=== PATIENT | female | born 1950 | race Caucasian/White ===

== ENCOUNTER 2023-10-11 17:42 | Inpatient (IN) | payer MEDICARE, OTHER, SELFPAY ==
[2023-10-11] VITALS (9 sets, daily range): BP systolic 147–191; BP diastolic 61–75; BMI 23.5; BMI 22.3
[2023-10-11 14:07] LABS: % Basophils 0.5 % (0-2); % Eosinophils 1.1 % (0-6); % Immature Granulocytes 0.4 % (0-0.5); % Lymphocytes 23.5 % (20.5-51.1); % Monocytes 5.5 % (1.7-9.3); Absolute Basophils 0.1 10^3/uL (0-0.2); Absolute Eosinophils 0.1 10^3/uL (0-0.7); Absolute Lymphocytes 2.2 10^3/uL (1.2-3.4); Absolute Monocytes 0.5 10^3/uL (0.1-0.6); Absolute Neutrophils 6.5 10^3/uL (1.4-6.5); Hematocrit 34.5 % (37.0-47.0); Hemoglobin 12.1 g/dL (12.0-16.0); Mean Corp Hgb Conc. 35.1 g/dL (33.0-37.0); Mean Corpuscular Hgb 30.3 pg (27.0-31.0); Mean Corpuscular Volume 86.3 fL (81.0-99.0); Mean Platelet Volume 8.6 fL (7.4-10.4); Nucleated Red Blood Cells % 0 %; Platelet Count 330 10^3/uL (130-400); Red Cell Dist. Width 11.9 % (11.5-14.5); White Blood Cell Count 9.5 10^3/uL (4.8-10.8)
[2023-10-11 14:27] LABS: ALT (SGPT) 11 U/L (0-35); AST (SGOT) 27 U/L (14-36); Albumin 3.9 g/dl (3.5-5.0); Alkaline Phosphatase 87 U/L (38-126); Blood Urea Nitrogen 13 mg/dl (7-17); Calcium 8.8 mg/dl (8.4-10.2); Carbon Dioxide 21 mmol/L (22-30); Chloride 89 mmol/L (98-107); Glucose 103 mg/dl (70-99); Potassium 4.8 mmol/L (3.5-5.1); Sodium 119 mmol/L (135-145); Total Bilirubin 0.6 mg/dl (0.2-1.3); Total Protein 6.2 g/dl (6.3-8.2); eGFR 59.49
--- NOTE | 2023-10-11 14:36 | ED.GENMED ---
History of Present Illness
General
Chief Complaint: Abdominal Symptoms
Time Seen by Provider: 10/11/23 14:34
Travel History
Have you had any contact with someone who has COVID-19?: No
Do you have any symptoms of coronavirus? Fever > 100 degrees, chills, cough, shortness of breath, sore throat, loss of taste or smell, muscle aches, or headache?: No
History of Present Illness
History of Present Illness:
73 yo female presents to the Emergency Department for evaluation of general malaise, 'dizziness' and sinus pressure. Reports she was recently on a cruise, while abroad she developed URI symptoms. Upon returning 6d ago, was seen in urgent care and
prescribed amoxicillin, however states after one dose she 'got so sick to my stomach I stopped taking it'. She has tried supportive OTC measures for her URI symptoms since then, including increased fluid intake. Feels off balance when ambulating for
past 3-4 days. No vision changes, headaches, neck pain, vomiting. Does note several episodes of NB diarrhea today.
Past History
Past History
ED Past Medical History: CAD, Hypercholesterolemia, Hypothyroidism and Other (Rheumatoid arthritis)
ED Past Surgical History: None
Social History
Tobacco: Former smoker
Alcohol: None
Personal:
Living: with family
Employment: Employed
Family History
Family History: Other (Noncontributory)
Review of Systems
Review of Systems
Allergies reviewed?: Yes
All Other Systems: ROS reviewed and negative except as documented in HPI and ROS
Phy Exam
Physical Exam
Physical Exam:
GEN: Well appearing, NAD, WDWN
HEENT: Oral mucosa moist, no scleral icterus, no nasal congestion
Cardiac: Regular rate and rhythm, no murmurs
Lung: No respiratory distress, no tachypnea, lungs CTAB
MSK: No gross deformity or injuries
Skin: Good color, no pallor or jaundice, no rashes
Neuro: AO x3; CN II-XII grossly intact. BUE strength 5/5 in all mclaughlin, sensation intact and symmetric. BLE strength 5/5 in all mclaughlin, sensation intact and symmetric
Psych: Calm, cooperative
Course
Orders/Labs/Results
Orders:
Orders
10/11/23 13:59
CMP [Comprehensive Metabolic Panel] Urgent
Complete Blood Count/With Diff Urgent
Serum Osmolality Urgent
Comment: ADD
TSH Urgent
Comment: ADD
10/11/23 14:35
Add On- LAB Urgent
Tests Added?: serum osmolality, TSH
10/11/23 15:35
Osmolality, Random Urine Urgent
Date Specimen was Collected: 10/11/23
Time Specimen was Collected: 15:32
Urinalysis Reflex To Culture Urgent
Date Specimen was Collected: 10/11/23
Time Specimen was Collected: 15:32
Urine Sodium Urgent
Date Specimen was Collected: 10/11/23
Time Specimen was Collected: 15:32
10/11/23 17:05
3% Sodium Chloride 250 ml [Sodium Chloride 3%] 250 ml IV ONCE
10/11/23 17:22
Admit/Transfer Patient As Directed
Co-Sign Provider:
Level of Care: Inpatient admission
Assign to:: Telemetry
Physician / Group: janice
Diagnosis: hyponatremia
Reason for Telemetry: Arrhythmia
Date to Stop Telemetry: 10/14/23
Time to Stop Telemetry: 11:00
Reason for Hospitalization: hyponatremia
Expected length of stay greater than two midnights?: Yes
ELOS- Estimated Length of Stay in days: 2
I certify the patient meets the requirements for IP care: Yes
10/11/23 17:24
Code Status As Directed
Resuscitation Status: Full Code
10/11/23 21:00
Basic Metabolic Panel Routine
10/14/23 11:00
DC Protocol for Telemetry ONCE
Abnormal Lab Results
10/11/23 10/11/23
13:59 15:35
RBC 4.00 L 10^6/uL
(4.20-5.40)
Hct 34.5 L %
(37.0-47.0)
Sodium 119 L* mmol/L
(135-145)
Chloride 89 L mmol/L
(98-107)
Carbon Dioxide 21 L mmol/L
(22-30)
Glucose 103 H mg/dl
(70-99)
Serum Osmolality 250 L mOsm/kg
(275-300)
Total Protein 6.2 L g/dl
(6.3-8.2)
Urine Osmolality 125 L mOsm/kg
(300-900)
Urine Sodium 22 L mmol/L
(30-90)
10/11/23 13:59
10/11/23 13:59
Vital Signs
Initial and Last Documented VS:
Initial Vital Signs
Temp Pulse Resp BP Pulse Ox
98.3 F 79 18 191/75 98
10/11/23 13:49 10/11/23 13:49 10/11/23 13:49 10/11/23 13:49 10/11/23 13:49
Last Documented Vital Signs
Temp Pulse Resp BP Pulse Ox
98.3 F 76 20 170/68 95
10/11/23 13:49 10/11/23 19:30 10/11/23 19:30 10/11/23 19:00 10/11/23 19:30
MDM/Problems Addressed
MDM/Problems Addressed:
I suspect the cause of the patient's hyponatremia is primarily polydipsia in the setting of recent illness. Will be admitted to the hospitalist service for further management. Regards to her URI symptoms there is no indication that this is acute
bacterial rhinosinusitis thus antibiotics not indicated
*Critical Care Note
Total Time (30-74mins, 75-104mins- exclusive of procedures): Not Applicable
ED Attending Note
-
Portions of this chart may have been created with voice recognition software.� Occasional wrong word or��sound alike� substitutions may have occurred due to the inherent limitations of voice recognition software.
Discharge Plan
Departure
Patient Disposition: Admit
Date of Disposition: 10/11/23
Time of Disposition: 16:31
Admit to: Med/Surg
Presentation/result/management discussed w/ accepting MD/DO: Hospitalist
Discharge Problem:
Acute hyponatremia
Interventions
Interventions:
*Risk Screen - Suicide Last Done: 10/11/23 15:42
*General Assessment Last Done: 10/11/23 15:42
*Neglect/Abuse Screening Last Done: 10/11/23 15:42
ED- Fall Risk Assessment Last Done: 10/11/23 15:42
*ED COVID-19 Vaccine History Last Done: 10/11/23 13:51
DR-Sxpbyd-Mxgetbodcl Assessment Last Done: 10/11/23 15:42
[2023-10-11 15:45] LABS: Urine Albumin Negative (Neg - Trace); Urine Bilirubin Negative (Negative); Urine Character Clear (Clear); Urine Color Yellow; Urine Glucose Negative (Negative); Urine Ketone Negative (Negative); Urine Leukocyte Negative (Negative); Urine Nitrite Negative (Negative); Urine Occult Blood Negative (Negative); Urine Specific Gravity 1.005 (<1.030); Urine Urobilinogen Negative (Neg - 1+)
[2023-10-11 15:55] LABS: Osmolality Urine 125 mOsm/kg (300-900)
[2023-10-11 16:08] LABS: Urine Sodium 22 mmol/L (30-90)
--- NOTE | 2023-10-11 17:00 | W.CON.NEPH ---
Consultation
-
Date/Time Consultation Requested: October 11, 2023 4 PM
Date/Time Consultation Performed: October 11, 2023 5 PM
Requesting Provider: Dr. Hollis
Performing Provider: Dr. Kamara
Reason for Consultation: Hyponatremia
Medical History
-
Chief Complaint: Hyponatremia
History of Present Illness:
This is a 73-year-old female with hypertension controlled with monotherapy regimen, rheumatoid arthritis on methotrexate therapy, hypothyroidism controlled with Synthroid therapy. She had recently been on a cruise going from [facility] to [place].
This was a 17 day trip and she flew home from [place]. Last Tuesday or she began developing some head pressure and sinus issues. She took yusu-acq-hddhzwz therapies which did not seem to make her situation any better. Upon return she
gone to urgent care where she says a chest x-ray and blood work was unremarkable. She says that they diagnosed her with acute sinusitis and gave her amoxicillin. She took her first dose of this on Tuesday as instructed but this caused nausea and
so she had discontinued it on the recommendation of her on-call primary care physician's office. She had tried to drink more fluids by adding 32 ounces of water every day for the last few days. Yesterday she came out feeling dizzy and unstable.
She came to the emergency room for evaluation and was found to have a sodium level of 119.
Past Medical History
Hypertension, hypothyroidism, rheumatoid arthritis
Social History
Tobacco: Former Smoker
Alcohol: Occasional
Family History
No CKD
Allergies / Home Medications
Allergy/AdvReac Type Severity Reaction Status Date / Time
amoxicillin trihydrate Allergy Rash Verified 10/11/23 13:54
[From Augmentin]
erythromycin base Allergy Unknown Verified 10/11/23 13:54
levofloxacin [From Levaquin] Allergy Unknown Verified 10/11/23 13:54
losartan Allergy Unknown Verified 10/11/23 13:54
potassium clavulanate Allergy Rash Verified 10/11/23 13:54
[From Augmentin]
Sulfa (Sulfonamide Allergy Unknown Verified 10/11/23 13:54
Antibiotics)
�Medication �Instructions �Recorded �Confirmed �Type
levothyroxine 75 mcg tablet 75 mcg PO MOTUWETHFRSA 09/04/13 10/11/23 History
azelastine 137 mcg (0.1 %) nasal 1 spray intranasal BID 10/11/23 10/11/23 History
spray aerosol
cholecalciferol (vitamin D3) 25 25 mcg PO DAILY 10/11/23 10/11/23 History
mcg (1,000 unit) tablet (Vitamin
D3)
ergocalciferol (vitamin D2) 1,250 1,250 mcg PO QMONTH 10/11/23 10/11/23 History
mcg (50,000 unit) capsule
fluticasone propionate 50 1 spray intranasal DAILY 10/11/23 10/11/23 History
mcg/actuation nasal
spray,suspension
folic acid 1 mg tablet 1 mg PO DAILY 10/11/23 10/11/23 History
lisinopril 5 mg tablet 5 mg PO DAILY 10/11/23 10/11/23 History
methotrexate sodium 2.5 mg tablet 10 mg PO BLANCO 10/11/23 10/11/23 History
uyrboogjvbspp-wbznvffpykwtp-oysktrjhrmx 1 tab PO DAILYPRN PRN allergies 10/11/23 10/11/23 History
5 mg-325 mg-200 mg tablet
Review of Systems
-
No chest pain or shortness of breath. Diarrhea today. Decreased oral intake. No issues with urination. No chest pain or shortness of breath.
All other systems: Negative unless noted
Physical Exam
Vital Signs
Vital Signs
Temp Pulse Resp BP Pulse Ox
98.3 F 72 17 174/62 97
10/11/23 13:49 10/11/23 16:15 10/11/23 16:15 10/11/23 16:00 10/11/23 16:15
Lab Results
WBC 9.5 10^3/uL (4.8-10.8) 10/11/23 13:59
RBC 4.00 10^6/uL (4.20-5.40) L 10/11/23 13:59
Hgb 12.1 g/dL (12.0-16.0) 10/11/23 13:59
Hct 34.5 % (37.0-47.0) L 10/11/23 13:59
Plt Count 330 10^3/uL (130-400) 10/11/23 13:59
Sodium 119 mmol/L (135-145) L* 10/11/23 13:59
Potassium 4.8 mmol/L (3.5-5.1) 10/11/23 13:59
Chloride 89 mmol/L (98-107) L 10/11/23 13:59
Carbon Dioxide 21 mmol/L (22-30) L 10/11/23 13:59
BUN 13 mg/dl (7-17) 10/11/23 13:59
Creatinine 1.0 mg/dL (0.6-1.0) 10/11/23 13:59
eGFR 59.49 10/11/23 13:59
Glucose 103 mg/dl (70-99) H 10/11/23 13:59
Calcium 8.8 mg/dl (8.4-10.2) 10/11/23 13:59
Albumin 3.9 g/dl (3.5-5.0) 10/11/23 13:59
Physical Exam
Patient is awake alert oriented and in no distress. Mood and affect were pleasant, insight and judgment were good. Pupils are equal round and reactive to light, extraocular movements are intact, sclera were anicteric. Hearing was normal, ears and
nose are intact. Oropharynx was clear. Neck was supple with trachea midline and no thyromegaly. Heart was regular rate and rhythm without rubs. Lower extremities without edema. Lungs were clear to auscultation bilaterally and with normal
excursion. Abdomen was soft, nontender, with normal active bowel sounds, and no hepatosplenomegaly. Skin was without rash and with normal turgor.
Data Reviewed
-
Ultrasound: Report Reviewed by me (Renal ultrasound on 04/06/2023 shows right kidney 9.4 cm, left kidney 10 cm)
Labs: Labs Reviewed by me (Sodium 119, potassium 4.8, bicarb 21, chloride 89, BUN 13, creatinine 1, glucose 103, calcium 8.8, urinalysis pH of 7 suis of gravity 1.005, urine osmolality 125, urine sodium 25, hemoglobin 12.1)
Old Records: Reviewed (On December 14, 2022 sodium 137)
Assessment/Plan
-
Assessment:
Hyponatremia acute
Hypertension
Hypothyroid
Rheumatoid arthritis
Sinusitis
Plan:
Fluid restriction 40 ounces
Hypertonic saline tonight 30 cc/h
Serial basic metabolic panel
I suspect that she will correct easily as this appears to be more consistent with a low solute high solvent state
[2023-10-11 17:02] LABS: TSH 0.74 uIU/ml (0.47-4.68)
--- NOTE | 2023-10-11 17:25 | HPS.HSE ---
Addendum entered and electronically signed by Mehrdad Hollis MD 10/11/23 17:36:
Continue azalastine nasal spray instead of nasal saline spray.
Original Note:
Family Physician
-
Family Physician: Charlie Hamilton
Chief Complaint
-
dizziness
History of Present Illness
73-year-old female past medical history of carotid artery stenosis hypertension, hypercholesteremia, hypothyroidism, rheumatoid arthritis, chronic sinusitis presenting to the emergency room for sinus pressure, nasal discharge with clear to yellow
mucus and cough as well as disequilibrium, weakness, nausea. She was on a cruise when she developed worsening of her chronic sinus symptoms 6 days ago with sinus pressure, nasal discharge with clear yellow mucus and cough and right ear pressure.
The next day when she came back she went to urgent care and was prescribed amoxicillin and was told to started 3 days later if her symptoms did not improve.
Symptoms do not improve after 3 to 4 days and she took a single dose of amoxicillin and got severely nauseous and stopped taking further amoxicillin. She saw her primary care physician who performed chest x-ray which was unremarkable recommended
Flonase twice a day. Around that time she also developed weakness, off balance when ambulating. Over the past few days she has been drinking 72 ounces of fluids per day. Today she developed 3 episodes of diarrhea. She denies any abdominal pain.
She denies any fevers or chills.
Denies vision changes, headache, neck pain, vomiting. Denies any new medications apart from listed above. Denies any history of low sodium
Denies smoking or alcohol use.
Medical History
Past Medical History
Past Medical History: Reports Other ( carotid artery stenosis hypertension, hypercholesteremia, hypothyroidism, rheumatoid arthritis, chronic sinusitis )
Past Surgical History: Reports None
Social History
Tobacco: Non-smoker
Alcohol: None
Drug: None
Family History
Family History: Not pertinent
Allergies / Home Medications
Allergies reflects when Allergies were last updated in [facility].
Home Medications with original date entered in [facility]
Allergy/Medication List:
Allergies
Allergy/AdvReac Type Severity Reaction Status Date / Time
amoxicillin trihydrate Allergy Rash Verified 10/11/23 13:54
[From Augmentin]
erythromycin base Allergy Unknown Verified 10/11/23 13:54
levofloxacin [From Levaquin] Allergy Unknown Verified 10/11/23 13:54
losartan Allergy Unknown Verified 10/11/23 13:54
potassium clavulanate Allergy Rash Verified 10/11/23 13:54
[From Augmentin]
Sulfa (Sulfonamide Allergy Unknown Verified 10/11/23 13:54
Antibiotics)
Home Medications
levothyroxine 75 mcg tablet 75 mcg PO MOTUWETHFRSA 09/04/13
azelastine 137 mcg (0.1 %) nasal spray aerosol 1 spray intranasal BID 10/11/23
cholecalciferol (vitamin D3) 25 mcg (1,000 unit) tablet (Vitamin D3) 25 mcg PO DAILY 10/11/23
ergocalciferol (vitamin D2) 1,250 mcg (50,000 unit) capsule 1,250 mcg PO QMONTH 10/11/23
fluticasone propionate 50 mcg/actuation nasal spray,suspension 1 spray intranasal DAILY 10/11/23
folic acid 1 mg tablet 1 mg PO DAILY 10/11/23
lisinopril 5 mg tablet 5 mg PO DAILY 10/11/23
methotrexate sodium 2.5 mg tablet 10 mg PO BLANCO 10/11/23
geawnwkqcmnye-jlcwuqibwppcz-pcjkrpbxhxg 5 mg-325 mg-200 mg tablet 1 tab PO DAILYPRN PRN allergies 10/11/23
Review of Systems
-
History Source: Patient
A 12 point ROS was completed and negative except as noted: Yes
Constitutional: Reports No Symptoms
EENT: Reports No Symptoms
Respiratory: Reports No Symptoms
Cardiac: Reports No Symptoms
Abdomen/GI: Reports See HPI
: Reports No Symptoms
Musculoskeletal: Reports No Symptoms
Skin: Reports No Symptoms
Neurological: Reports No Symptoms
Endocrine: Reports No Symptoms
Hematologic/Lymphatic: Reports No Symptoms
Psych: Reports No Symptoms
Physical Exam
Vital Signs
Vital Signs
Temp Pulse Resp BP Pulse Ox
98.3 F 72 17 174/62 97
10/11/23 13:49 10/11/23 16:15 10/11/23 16:15 10/11/23 16:00 10/11/23 16:15
Physical Exam
General: Well Developed, Well Nourished and No Apparent Distress
HEENT: NormoCephalic, Moist mucous membranes and Atraumatic
Respiratory: Clear
Cardiac: S1/S2 and Regular Rhythm; No Murmur or Rub
GI: Soft, Non Tender, Non Distended and Normal Bowel Sounds; No Organomegaly
Rectal: Deferred by Provider
Musculoskeletal: No Clubbing, No Cyanosis and No Edema
Skin: No Rash
Neuro: Nonfocal/grossly intact
Laboratory Results
-
10/11/23 13:59
Laboratory Results
Total Bilirubin 0.6 mg/dl (0.2-1.3) 10/11/23 13:59
AST 27 U/L (14-36) 10/11/23 13:59
ALT 11 U/L (0-35) 10/11/23 13:59
Alkaline Phosphatase 87 U/L (38-126) 10/11/23 13:59
Data Reviewed
-
Lab Data: Labs Reviewed by me
Old Records: Reviewed
Impression/Plan
-
IMPRESSION:
PLAN:
# Symptomatic hyponatremia multifactorial secondary to polydipsia/GI losses from diarrhea
-Sodium 119
-Urine osmolality 125, urine sodium of 22
-Check TSH
-Nephrology consulted
-Fluid restriction 40 ounces
-Hypertonic saline 30 cc/h
-Check BMP after hypertonic saline
# Likely acute viral on chronic sinusitis
-Can continue to observe for few more days with symptomatic treatment before starting antibiotics
-Continue Flonase
-Nasal saline irrigation
# Likely antibiotic associated diarrhea
-Has been off antibiotics for few days
-Continue to monitor for further diarrhea
Carotid artery stenosis
Essential hypertension
-Continue lisinopril
Hypercholesterolemia
Hypothyroidism
-Continue levothyroxine
Rheumatoid arthritis
-Continue methotrexate
Full code
DVT prophylaxis�heparin
Regular diet
[2023-10-11] MEDS: SODIUM CHLORIDE 3% 250 IV (17:38)
[2023-10-11 18:24] LABS: Osmolality Serum 250 mOsm/kg (275-300)
[2023-10-11 20:50] LABS: COVID-19 Antigen Negative (Negative)
[2023-10-11 21:32] LABS: Blood Urea Nitrogen 10 mg/dl (7-17); Calcium 9.1 mg/dl (8.4-10.2); Carbon Dioxide 23 mmol/L (22-30); Chloride 93 mmol/L (98-107); Estimated Creatinine Clearance 44 ml/min; Glucose 94 mg/dl (70-99); Potassium 5.2 mmol/L (3.5-5.1); Sodium 123 mmol/L (135-145); eGFR > 60.00
[2023-10-12] MEDS: DRISDOL (VITAMIN D2) 50000 UNITS PO (00:41)
[2023-10-12] MEDS: TYLENOL 650 MG PO (00:41)
[2023-10-12 02:18] VITALS: BP 133/60
[2023-10-12 04:17] VITALS: BMI 22.2
[2023-10-12] MEDS: SYNTHROID 75 MCG PO (06:37)
[2023-10-12 07:00] VITALS: BP 151/73
[2023-10-12 07:09] LABS: % Basophils 0.7 % (0-2); % Eosinophils 2.6 % (0-6); % Immature Granulocytes 0.5 % (0-0.5); % Lymphocytes 34.8 % (20.5-51.1); % Monocytes 6.5 % (1.7-9.3); % Neutrophils 54.9 % (42.2-75.2); Absolute Eosinophils 0.2 10^3/uL (0-0.7); Absolute Monocytes 0.4 10^3/uL (0.1-0.6); Absolute Neutrophils 3.2 10^3/uL (1.4-6.5); Hemoglobin 11.9 g/dL (12.0-16.0); Mean Corpuscular Hgb 30.4 pg (27.0-31.0); Mean Corpuscular Volume 89.5 fL (81.0-99.0); Mean Platelet Volume 9.1 fL (7.4-10.4); Nucleated Red Blood Cells % 0 %; Platelet Count 331 10^3/uL (130-400); Red Blood Cell Count 3.91 10^6/uL (4.20-5.40); Red Cell Dist. Width 11.9 % (11.5-14.5); White Blood Cell Count 5.8 10^3/uL (4.8-10.8)
[2023-10-12 07:22] LABS: ALT (SGPT) < 10 U/L (0-35); AST (SGOT) 19 U/L (14-36); Albumin 3.5 g/dl (3.5-5.0); Alkaline Phosphatase 81 U/L (38-126); Blood Urea Nitrogen 9 mg/dl (7-17); Calcium 9.2 mg/dl (8.4-10.2); Carbon Dioxide 24 mmol/L (22-30); Chloride 98 mmol/L (98-107); Estimated Creatinine Clearance 40 ml/min; Glucose 87 mg/dl (70-99); Potassium 5.5 mmol/L (3.5-5.1); Sodium 129 mmol/L (135-145); Total Bilirubin 0.4 mg/dl (0.2-1.3); Total Protein 5.7 g/dl (6.3-8.2); eGFR 59.49
[2023-10-12] MEDS: ZESTRIL 5 MG PO (08:49)
[2023-10-12] MEDS: FOLVITE 1 MG PO (08:49)
[2023-10-12] MEDS: VITAMIN D3 (cholecalciferol) 25 MCG PO (08:49)
[2023-10-12] MEDS: LOKELMA 5 GRAM PO (10:05)
[2023-10-12 11:00] VITALS: BP 145/62
--- NOTE | 2023-10-12 11:56 | W.PN.HOSP.TC ---
Today's Communication/Plan
-
Recheck BMP this afternoon
Continue fluid restriction
If remains hyperkalemic consideration for adjusting lisinopril/has been managed by nephrology in the past as outpatient
Assessment / Plan
Assessment / Plan
73-year-old female past medical history of carotid artery stenosis hypertension, hypercholesteremia, hypothyroidism, rheumatoid arthritis, chronic sinusitis presenting to the emergency room for sinus pressure, nasal discharge with clear to yellow
mucus and cough as well as disequilibrium, weakness, nausea. She was on a cruise when she developed worsening of her chronic sinus symptoms 6 days ago with sinus pressure, nasal discharge with clear yellow mucus and cough and right ear pressure.
The next day when she came back she went to urgent care and was prescribed amoxicillin and was told to started 3 days later if her symptoms did not improve.
Symptoms do not improve after 3 to 4 days and she took a single dose of amoxicillin and got severely nauseous and stopped taking further amoxicillin. She saw her primary care physician who performed chest x-ray which was unremarkable recommended
Flonase twice a day. Around that time she also developed weakness, off balance when ambulating. Over the past few days she has been drinking 72 ounces of fluids per day. Today she developed 3 episodes of diarrhea. She denies any abdominal pain.
She denies any fevers or chills.
Denies vision changes, headache, neck pain, vomiting. Denies any new medications apart from listed above. Denies any history of low sodium
Denies smoking or alcohol use.
# Symptomatic hyponatremia multifactorial secondary to polydipsia/GI losses from diarrhea
-Sodium 119>> 129 this morning
-Urine osmolality 125, urine sodium of 22
-Check TSH is within normal limits
-Nephrology consulted
-Fluid restriction 40 ounces
-Hypertonic saline 30 cc/h now off
-Hyperkalemia this morning/recheck potassium this afternoon/lisinopril contributing
-Check BMP again this afternoon
# Likely acute viral on chronic sinusitis
-Can continue to observe for few more days with symptomatic treatment before starting antibiotics
-Continue Flonase
-Nasal saline irrigation
# Likely antibiotic associated diarrhea
-Has been off antibiotics for few days
-Continue to monitor for further diarrhea
Carotid artery stenosis
Essential hypertension
-Continue lisinopril
Hypercholesterolemia
Hypothyroidism
-Continue levothyroxine
Rheumatoid arthritis
-Continue methotrexate
Full code
DVT prophylaxis�heparin
Regular diet
Anticipated Discharge: Within 24 hours
Subjective/Interval History
-
Date of Service: October 12, 2023
Patient is feeling quite a bit better than yesterday not lightheaded and more strength has good appetite wants to eat
Objective Data
-
Labs:
Laboratory Results
10/12/23 10/12/23
06:09 16:55
WBC 5.8
Hgb 11.9 L
Hct 35.0 L
Plt Count 331
Sodium 129 L Pending
Potassium 5.5 H Pending
Chloride 98 Pending
Carbon Dioxide 24 Pending
BUN 9 Pending
Creatinine 1.0 Pending
Glucose 87 Pending
Calcium 9.2 Pending
Total Bilirubin 0.4
AST 19
ALT < 10
Alkaline Phosphatase 81
Vital Signs:
Vital Signs
Temp Pulse Resp BP Pulse Ox
98.7 F 75 16 145/62 95
10/12/23 11:00 10/12/23 11:00 10/12/23 11:00 10/12/23 11:00 10/12/23 11:00
Review of Systems
-
History Source: Patient
Constitutional: Reports No Symptoms
EENT: Reports No Symptoms Reported
Respiratory: Reports No Symptoms
Cardiac: Reports No Symptoms
Abdomen/GI: Reports No Symptoms
Physical Exam
-
General: Well Developed
HEENT: Normocephalic
Respiratory: Clear to Auscultation
Cardiac: Regular Rhythm
GI: Soft, Nontender and Nondistended
Genito-urinary: Clear Urine
Musculoskeletal: No Clubbing
Neuro: Awake, Alert, Oriented and No Motor Deficits
Psych: Calm
Data Reviewed
-
Total Time Spent with Patient (in minutes): 45
Labs: Labs Reviewed by me
[2023-10-12] MEDS: CLARITIN PO (14:33)
[2023-10-12] MEDS: SUDAFED 30 MG PO (14:57)
[2023-10-12 15:00] VITALS: BP 125/57
--- NOTE | 2023-10-12 15:07 | W.PN.NEPH.PH ---
Today's Communication / Plan
-
- allow autocorrection
Assessment/Plan
-
Assessment:
Hyponatremia acute
Hypertension
Hypothyroid
Rheumatoid arthritis
Sinusitis
Plan:
Na improved from 122-->129, allow for autocorrection
Feeling better this AM
liberalize FR to 60oz
Encouraged increased protein intake
Serial basic metabolic panel
I suspect that she will correct easily as this appears to be more consistent with a low solute high solvent state.
-
-
Date of Service: October 12, 2023
CC / HPI / ROS
-
Chief Complaint:
hyponatremia
History of Present Illness:
Na from 123 --> 129 s/p HTS
feeling improved this AM
Review of Systems:
encouraged protein
OK with liberalizing fluids
Labs
-
Labs:
WBC 5.8 10^3/uL (4.8-10.8) 10/12/23 06:09
RBC 3.91 10^6/uL (4.20-5.40) L 10/12/23 06:09
Hgb 11.9 g/dL (12.0-16.0) L 10/12/23 06:09
Hct 35.0 % (37.0-47.0) L 10/12/23 06:09
Plt Count 331 10^3/uL (130-400) 10/12/23 06:09
eGFR 59.49 10/12/23 06:09
Albumin 3.5 g/dl (3.5-5.0) 10/12/23 06:09
Physical Exam
-
Vital Signs:
Vital Signs
Temp Pulse Resp BP Pulse Ox
98.7 F 75 16 145/62 95
10/12/23 11:00 10/12/23 11:00 10/12/23 11:00 10/12/23 11:00 10/12/23 11:00
Cardiovascular:: Regular rate and rhythm
Respiratory:: Bilateral: CTA
Lung Excursion:: Normal
Abdomen:: Soft
Bowel Sounds:: Normal
Extremity Edema:: None: Bilateral:
Gilbert Catheter: No
--- NOTE | 2023-10-12 15:58 | CM ---
Met with pt at bedside
Pt lives with her in a 2 story home
Independent, active
DME - none
SNF/HH - no past hx
Has ride at d/c
PCP - Dr Charlie Hamilton
Pharm - [facility]
CM consult for Advance Directive info - discussed with pt and given informational packet
CM will follow for d/c needs
Plan - anticipate home no needs
[2023-10-12 17:25] LABS: Blood Urea Nitrogen 12 mg/dl (7-17); Carbon Dioxide 25 mmol/L (22-30); Chloride 97 mmol/L (98-107); Estimated Creatinine Clearance 40 ml/min; Glucose 95 mg/dl (70-99); Potassium 4.6 mmol/L (3.5-5.1); Sodium 129 mmol/L (135-145); eGFR 59.49
[2023-10-12 19:00] VITALS: BP 156/57
[2023-10-12] MEDS: MUCINEX 1200 MG PO (19:55)
[2023-10-12 23:25] VITALS: BP 114/48
[2023-10-13 03:09] VITALS: BP 115/85
[2023-10-13] MEDS: SYNTHROID 75 MCG PO (05:48)
[2023-10-13 06:40] LABS: Blood Urea Nitrogen 10 mg/dl (7-17); Calcium 9.2 mg/dl (8.4-10.2); Carbon Dioxide 25 mmol/L (22-30); Chloride 98 mmol/L (98-107); Estimated Creatinine Clearance 40 ml/min; Glucose 87 mg/dl (70-99); Sodium 130 mmol/L (135-145); eGFR 59.49
[2023-10-13 07:50] VITALS: BP 146/59
[2023-10-13] MEDS: CLARITIN 10 MG PO (08:12)
[2023-10-13] MEDS: VITAMIN D3 (cholecalciferol) 25 MCG PO (08:12)
[2023-10-13] MEDS: FOLVITE 1 MG PO (08:12)
[2023-10-13] MEDS: MUCINEX 1200 MG PO ×2 (08:12→20:10)
--- NOTE | 2023-10-13 10:51 | PN.CDI ---
CDI
- -
CDI:
Physician Documentation Request
Admit Date: 10/11/23 17:42
Dear Doctor Gordo,
Please review the following and provide your response in the progress notes.
Clinical Indicators:
The diagnosis of Influenza A was included in the signed 10/10 Nasal swab.
- 10/10 ER Physician 'general malaise, 'dizziness' and sinus pressure'
Please indicate in your progress notes if you are in agreement that the above diagnosis is valid for this patient:
____ - Influenza A is a valid diagnosis (Please include it in your progress notes)
____ - Influenza A is not a valid diagnosis for this patient
____ - Influenza A is not yet confirmed but remains a suspected condition
____ - Other
Use of terms such as suspected, likely, concern for, or probable are acceptable for a diagnosis that is being evaluated, monitored or treated as if it exists and can be coded in the inpatient setting, when documented at the time of discharge.
Thank you,
Rosalba Melchor RN
CDI Specialist
Please use your independent medical judgment in providing your response.
[2023-10-13 11:19] VITALS: BP 135/55
--- NOTE | 2023-10-13 14:19 | W.PN.HOSP.TC ---
Today's Communication/Plan
-
Obtain a chest x-ray
Assessment / Plan
Assessment / Plan
73-year-old female past medical history of carotid artery stenosis hypertension, hypercholesteremia, hypothyroidism, rheumatoid arthritis, chronic sinusitis presenting to the emergency room for sinus pressure, nasal discharge with clear to yellow
mucus and cough as well as disequilibrium, weakness, nausea. She was on a cruise when she developed worsening of her chronic sinus symptoms 6 days ago with sinus pressure, nasal discharge with clear yellow mucus and cough and right ear pressure.
The next day when she came back she went to urgent care and was prescribed amoxicillin and was told to started 3 days later if her symptoms did not improve.
Symptoms do not improve after 3 to 4 days and she took a single dose of amoxicillin and got severely nauseous and stopped taking further amoxicillin. She saw her primary care physician who performed chest x-ray which was unremarkable recommended
Flonase twice a day. Around that time she also developed weakness, off balance when ambulating. Over the past few days she has been drinking 72 ounces of fluids per day. Today she developed 3 episodes of diarrhea. She denies any abdominal pain.
She denies any fevers or chills.
Denies vision changes, headache, neck pain, vomiting. Denies any new medications apart from listed above. Denies any history of low sodium
Denies smoking or alcohol use.
# Symptomatic hyponatremia multifactorial secondary to polydipsia/GI losses from diarrhea
-Sodium 119>> 129 this morning
-Urine osmolality 125, urine sodium of 22
-Check TSH is within normal limits
-Nephrology consulted
-Fluid restriction 40 ounces
-Hypertonic saline 30 cc/h now off
-Hyperkalemia this morning/recheck potassium this afternoon/lisinopril contributing
10/12
Hyponatremia and hyperkalemia improved
# Influenza A infection
Patient tested positive for influenza A
Symptoms more than 72-hour, no indication to start Tamiflu
-Still coughing, will obtain chest x-ray, rule out superimposed bacterial
-Nasal saline irrigation
# Likely antibiotic associated diarrhea
-Has been off antibiotics for few days
-Continue to monitor for further diarrhea
-Diarrhea resolved
Carotid artery stenosis
Essential hypertension
-Continue lisinopril
Hypercholesterolemia
Hypothyroidism
-Continue levothyroxine
Rheumatoid arthritis
-Continue methotrexate
Full code
DVT prophylaxis�heparin
Regular diet
Anticipated Discharge: 24 - 48 hours
Subjective/Interval History
-
Date of Service: October 13, 2023
Patient seen and examined at bedside, denies any chest pain, still coughing and still have shortness of breath, no abdominal pain, no nausea, no vomiting, no diarrhea or constipation.
Objective Data
-
Labs:
Laboratory Results
10/13/23
05:38
Sodium 130 L
Potassium 5.0
Chloride 98
Carbon Dioxide 25
BUN 10
Creatinine 1.0
Glucose 87
Calcium 9.2
Vital Signs:
Vital Signs
Temp Pulse Resp BP Pulse Ox
98.3 F 76 16 135/55 96
10/13/23 11:19 10/13/23 11:19 10/13/23 11:19 10/13/23 11:19 10/13/23 11:19
I&O
10/12/23 10/13/23 10/14/23
06:59 06:59 06:59
Intake Total 1620 / 1620
Balance 1620 / 1620
Physical Exam
-
General: Well Developed and No Apparent Distress
HEENT: Normocephalic, Atraumatic and Moist Mucous Membranes
Respiratory: Rales and Rhonchi
Cardiac: Regular Rhythm and S1/S2; Negative Murmur, Rub or Gallop
GI: Soft, Nontender, Nondistended and Normal Bowel Sounds; Negative Organomegaly
Rectal: Deferred by Provider
Musculoskeletal: No Clubbing, No Cyanosis and No Edema
Skin: Negative Rash
Neuro: Nonfocal/Grossly Intact
[2023-10-13] MEDS: TYLENOL 650 MG PO (14:34)
--- NOTE | 2023-10-13 15:03 | W.PN.NEPH.PH ---
Today's Communication / Plan
-
- Na now 130
- nephrology to sign off
Assessment/Plan
-
Assessment:
Hyponatremia acute
Hypertension
Hypothyroid
Rheumatoid arthritis
Sinusitis
Plan:
Na improved from 122-->129 --> 130, allow for autocorrection
Feeling better this AM
liberalize FR to 60oz
Encouraged increased protein intake
Serial basic metabolic panel
Follows with Dr. Dixon for hypertension. Will plan for 6-8 week follow up. Please obtain blood work in 2 weeks. Continue to hold lisinopril as patient did have some hyperK while inpatient.
-
-
Date of Service: October 13, 2023
CC / HPI / ROS
-
Chief Complaint:
hyponatremia
History of Present Illness:
Na from 123 --> 130 s/p HTS
feeling improved this AM
Review of Systems:
encouraged protein
OK with liberalizing fluids
Labs
-
Labs:
WBC 5.8 10^3/uL (4.8-10.8) 10/12/23 06:09
RBC 3.91 10^6/uL (4.20-5.40) L 10/12/23 06:09
Hgb 11.9 g/dL (12.0-16.0) L 10/12/23 06:09
Hct 35.0 % (37.0-47.0) L 10/12/23 06:09
Plt Count 331 10^3/uL (130-400) 10/12/23 06:09
Sodium 130 mmol/L (135-145) L 10/13/23 05:38
Potassium 5.0 mmol/L (3.5-5.1) 10/13/23 05:38
Chloride 98 mmol/L (98-107) 10/13/23 05:38
Carbon Dioxide 25 mmol/L (22-30) 10/13/23 05:38
BUN 10 mg/dl (7-17) 10/13/23 05:38
Creatinine 1.0 mg/dL (0.6-1.0) 10/13/23 05:38
eGFR 59.49 10/13/23 05:38
Glucose 87 mg/dl (70-99) 10/13/23 05:38
Calcium 9.2 mg/dl (8.4-10.2) 10/13/23 05:38
Albumin 3.5 g/dl (3.5-5.0) 10/12/23 06:09
Physical Exam
-
Vital Signs:
Vital Signs
Temp Pulse Resp BP Pulse Ox
98.3 F 76 16 135/55 96
10/13/23 11:19 10/13/23 11:19 10/13/23 11:19 10/13/23 11:19 10/13/23 11:19
Cardiovascular:: Regular rate and rhythm
Respiratory:: Bilateral: CTA
Lung Excursion:: Normal
Abdomen:: Nontender and Soft
Bowel Sounds:: Normal
Extremity Edema:: None: Bilateral:
Gilbert Catheter: No
[2023-10-13 15:39] VITALS: BP 147/59
[2023-10-13 19:33] LABS: Hepatitis C Antibody Negative (Negative)
[2023-10-13 19:56] VITALS: BP 101/71
[2023-10-13] MEDS: CRESTOR 10 MG PO (21:11)
[2023-10-13 23:06] VITALS: BP 130/67
[2023-10-14 03:27] VITALS: BP 118/56
[2023-10-14] MEDS: SYNTHROID 75 MCG PO (06:00)
[2023-10-14 06:20] LABS: Hematocrit 38.1 % (37.0-47.0); Hemoglobin 12.9 g/dL (12.0-16.0); Mean Corp Hgb Conc. 33.9 g/dL (33.0-37.0); Mean Corpuscular Hgb 30.2 pg (27.0-31.0); Mean Corpuscular Volume 89.2 fL (81.0-99.0); Mean Platelet Volume 8.7 fL (7.4-10.4); Platelet Count 403 10^3/uL (130-400); Red Blood Cell Count 4.27 10^6/uL (4.20-5.40); Red Cell Dist. Width 12.3 % (11.5-14.5); White Blood Cell Count 7.8 10^3/uL (4.8-10.8)
[2023-10-14 06:43] LABS: Blood Urea Nitrogen 11 mg/dl (7-17); Calcium 9.5 mg/dl (8.4-10.2); Carbon Dioxide 25 mmol/L (22-30); Chloride 98 mmol/L (98-107); Estimated Creatinine Clearance 40 ml/min; Glucose 93 mg/dl (70-99); Potassium 4.9 mmol/L (3.5-5.1); Sodium 132 mmol/L (135-145); eGFR 59.49
[2023-10-14] MEDS: MUCINEX 1200 MG PO (07:34)
[2023-10-14] MEDS: CLARITIN 10 MG PO (07:34)
[2023-10-14] MEDS: VITAMIN D3 (cholecalciferol) 25 MCG PO (07:34)
[2023-10-14] MEDS: FOLVITE 1 MG PO (07:34)
[2023-10-14 07:54] VITALS: BP 138/53
--- NOTE | 2023-10-14 11:04 | CM ---
Case management following for d/c planning
Met with pt, chart reviewed
Pending d/c today
Has ride home with her
Discussed IMM
Plan - home no needs
[2023-10-14 11:28] VITALS: BP 140/66
--- NOTE | 2023-10-14 11:34 | W.PN.HOSP.TC ---
Today's Communication/Plan
-
Discharge home today
Assessment / Plan
Assessment / Plan
73-year-old female past medical history of carotid artery stenosis hypertension, hypercholesteremia, hypothyroidism, rheumatoid arthritis, chronic sinusitis presenting to the emergency room for sinus pressure, nasal discharge with clear to yellow
mucus and cough as well as disequilibrium, weakness, nausea. She was on a cruise when she developed worsening of her chronic sinus symptoms 6 days ago with sinus pressure, nasal discharge with clear yellow mucus and cough and right ear pressure.
The next day when she came back she went to urgent care and was prescribed amoxicillin and was told to started 3 days later if her symptoms did not improve.
Symptoms do not improve after 3 to 4 days and she took a single dose of amoxicillin and got severely nauseous and stopped taking further amoxicillin. She saw her primary care physician who performed chest x-ray which was unremarkable recommended
Flonase twice a day. Around that time she also developed weakness, off balance when ambulating. Over the past few days she has been drinking 72 ounces of fluids per day. Today she developed 3 episodes of diarrhea. She denies any abdominal pain.
She denies any fevers or chills.
Denies vision changes, headache, neck pain, vomiting. Denies any new medications apart from listed above. Denies any history of low sodium
Denies smoking or alcohol use.
# Symptomatic hyponatremia multifactorial secondary to polydipsia/GI losses from diarrhea
-Sodium 119>> 129 this morning
-Urine osmolality 125, urine sodium of 22
-Check TSH is within normal limits
-Nephrology consulted
-Fluid restriction 40 ounces
-Hypertonic saline 30 cc/h now off
-Hyperkalemia this morning/recheck potassium this afternoon/lisinopril contributing
10/12
Hyponatremia and hyperkalemia improved
10/13
Sodium potassium level improved, discharged home
# Influenza A infection
Patient tested positive for influenza A
Symptoms more than 72-hour, no indication to start Tamiflu
-Still coughing, will obtain chest x-ray, rule out superimposed bacterial
-Nasal saline irrigation
# Likely antibiotic associated diarrhea
-Has been off antibiotics for few days
-Continue to monitor for further diarrhea
-Diarrhea resolved
Carotid artery stenosis
Essential hypertension
-Continue lisinopril
Hypercholesterolemia
Hypothyroidism
-Continue levothyroxine
Rheumatoid arthritis
-Continue methotrexate
Full code
DVT prophylaxis�heparin
Regular diet
Anticipated Discharge: Today
Subjective/Interval History
-
Date of Service: October 14, 2023
Patient seen and examined at bedside, denies any chest pain or shortness of breath, no abdominal pain, no nausea, no vomiting, no diarrhea or constipation.
Objective Data
-
Labs:
Laboratory Results
10/14/23
05:31
WBC 7.8
Hgb 12.9
Hct 38.1
Plt Count 403 H D
Sodium 132 L
Potassium 4.9
Chloride 98
Carbon Dioxide 25
BUN 11
Creatinine 1.0
Glucose 93
Calcium 9.5
Vital Signs:
Vital Signs
Temp Pulse Resp BP Pulse Ox
98 F 68 16 140/66 98
10/14/23 11:28 10/14/23 11:28 10/14/23 11:28 10/14/23 11:28 10/14/23 11:28
I&O
10/13/23 10/14/23 10/15/23
06:59 06:59 06:59
Intake Total 1620 / 1620 1739
Balance 162 / 1620 1739
Physical Exam
-
General: Well Developed and No Apparent Distress
HEENT: Normocephalic, Atraumatic and Moist Mucous Membranes
Respiratory: Rales and Rhonchi
Cardiac: Regular Rhythm and S1/S2; Negative Murmur, Rub or Gallop
GI: Soft, Nontender, Nondistended and Normal Bowel Sounds; Negative Organomegaly
Rectal: Deferred by Provider
Musculoskeletal: No Clubbing, No Cyanosis and No Edema
Skin: Negative Rash
Neuro: Nonfocal/Grossly Intact
--- NOTE | 2023-10-14 11:57 | W.DCSUMMARY ---
Discharge Summary
Discharge Data
Date of Admission: 10/11/23
Date of Discharge: 10/14/23
-
Pending Results: No
Hospital Course
73-year-old female past medical history of carotid artery stenosis hypertension, hypercholesteremia, hypothyroidism, rheumatoid arthritis, chronic sinusitis presenting to the emergency room for sinus pressure, nasal discharge with clear to yellow
mucus and cough as well as disequilibrium, weakness, nausea. She was on a cruise when she developed worsening of her chronic sinus symptoms 6 days ago with sinus pressure, nasal discharge with clear yellow mucus and cough and right ear pressure.
The next day when she came back she went to urgent care and was prescribed amoxicillin and was told to started 3 days later if her symptoms did not improve.
Symptoms do not improve after 3 to 4 days and she took a single dose of amoxicillin and got severely nauseous and stopped taking further amoxicillin. She saw her primary care physician who performed chest x-ray which was unremarkable recommended
Flonase twice a day. Around that time she also developed weakness, off balance when ambulating. Over the past few days she has been drinking 72 ounces of fluids per day. Today she developed 3 episodes of diarrhea. She denies any abdominal pain.
She denies any fevers or chills.
Denies vision changes, headache, neck pain, vomiting. Denies any new medications apart from listed above. Denies any history of low sodium
Denies smoking or alcohol use.
# Symptomatic hyponatremia multifactorial secondary to polydipsia/GI losses from diarrhea
-Sodium 119>> 129 this morning
-Urine osmolality 125, urine sodium of 22
-Check TSH is within normal limits
-Nephrology consulted
-Fluid restriction 40 ounces
-Hypertonic saline 30 cc/h now off
-Hyperkalemia this morning/recheck potassium this afternoon/lisinopril contributing
10/12
Hyponatremia and hyperkalemia improved
10/13
Sodium potassium level improved, discharged home
# Influenza A infection
Patient tested positive for influenza A
Symptoms more than 72-hour, no indication to start Tamiflu
-Still coughing, will obtain chest x-ray, rule out superimposed bacterial
-Nasal saline irrigation
# Likely antibiotic associated diarrhea
-Has been off antibiotics for few days
-Continue to monitor for further diarrhea
-Diarrhea resolved
Carotid artery stenosis
Essential hypertension
-Continue lisinopril
Hypercholesterolemia
Hypothyroidism
-Continue levothyroxine
Rheumatoid arthritis
-Continue methotrexate
Full code
DVT prophylaxis�heparin
Regular diet
Anticipated Discharge: Today
Discharge Plan
-
Patient Disposition: Home (Routine Discharge)
Discharge Diagnosis/Procedures: Hyponatremia
Diet: No restrictions
Activity: No restrictions
Driving Restrictions: As prior to admission
Blood Work: bmp in 2 weeks
Referrals:
Greg Kamara MD [Active] - in two to three weeks
Charlie Hamilton MD [Family Provider] -
Prescriptions:
New
Saline Nasal 0.65 % Aerosol,[place]
2 spray intranasal QIDPRN PRN (Reason: nasal congestion) Qty: 0 0RF
guaifenesin 600 mg Tablet Extended Release 12hr
1,200 mg PO Q12 Qty: 0 0RF
acetaminophen 325 mg Tablet
650 mg PO Q6HPRN PRN (Reason: mild pain/ fever>100.5F) Qty: 0 0RF
amlodipine [Norvasc] 5 mg tablet
5 mg PO DAILY Qty: 30 0RF
Continued
levothyroxine 75 MCG tablet
75 mcg PO MOTUWETHFRSA
methotrexate sodium 2.5 mg Tablet
10 mg PO BLANCO
folic acid 1 mg Tablet
1 mg PO DAILY
ergocalciferol (vitamin D2) 1,250 mcg (50,000 unit) Capsule
1,250 mcg PO QMONTH
azelastine 137 mcg (0.1 %) Aerosol,[place]
1 spray INTRANASAL BID
fluticasone propionate 50 mcg/actuation [place],Suspension
1 spray INTRANASAL DAILY
aeoifbzbgqrwp-pazxnpxtyewbs-[id number] 5-325-200 mg Tablet
1 tab PO DAILYPRN PRN (Reason: allergies)
cholecalciferol (vitamin D3) [Vitamin D3] 25 mcg (1,000 unit) Tablet
25 mcg PO DAILY
rosuvastatin 10 mg Tablet
10 mg PO DAILY
Discontinued
lisinopril 5 mg Tablet
5 mg PO DAILY
Discharge Orders:
Discharge Patient (As Directed); Ordered 10/14/23
Ordered By: Eric Burger
Discharge Date and Time
Print Language: [id number]
== END 2023-10-14 12:50 | disposition home or self-care (01) | DRG 194 ==
LOC: 3 WEST ACU 17:42
PROVIDERS: Emergency Medicine; Internal Medicine; Physician Assistant; ADMITTING PHYSICIAN Hospitalist; ATTENDING PHYSICIAN General Practice; CONSULT PHYSICIAN Specialist; EMERGENCY PHYSICIAN Emergency Medicine; FAMILY PHYSICIAN Internal Medicine
DX: J10.1 Influenza due to other identified influenza virus with other respiratory manifestations (principal); E87.1 Hypo-osmolality and hyponatremia; K52.1 Toxic gastroenteritis and colitis; I10 Essential (primary) hypertension; E78.00 Pure hypercholesterolemia, unspecified; E03.9 Hypothyroidism, unspecified; E87.5 Hyperkalemia; R63.1 Polydipsia; T36.95XA Adverse effect of unspecified systemic antibiotic, initial encounter; I65.29 Occlusion and stenosis of unspecified carotid artery; M06.9 Rheumatoid arthritis, unspecified
CPT/HCPCS: 71046; 80048; 80053; 81003; 83930; 83935; 84300; 84443; 85025; 85027; 86803; 87502; 87811; 99285

== ENCOUNTER 2024-09-04 11:43 | Emergency (ER) | payer MEDICARE, OTHER, SELFPAY ==
[2024-09-04 11:54] VITALS: BP 166/71
[2024-09-04 12:20] LABS: % Eosinophils 1.7 % (0-6); % Immature Granulocytes 0.2 % (0-0.5); % Lymphocytes 18.2 % (20.5-51.1); % Monocytes 5.6 % (1.7-9.3); % Neutrophils 73.3 % (42.2-75.2); Absolute Basophils 0.1 10^3/uL (0-0.2); Absolute Eosinophils 0.2 10^3/uL (0-0.7); Absolute Lymphocytes 1.6 10^3/uL (1.2-3.4); Absolute Monocytes 0.5 10^3/uL (0.1-0.6); Absolute Neutrophils 6.6 10^3/uL (1.4-6.5); Hematocrit 35.9 % (37.0-47.0); Hemoglobin 11.9 g/dL (12.0-16.0); Mean Corp Hgb Conc. 33.1 g/dL (33.0-37.0); Mean Corpuscular Hgb 31.1 pg (27.0-31.0); Mean Corpuscular Volume 93.7 fL (81.0-99.0); Mean Platelet Volume 9.2 fL (7.4-10.4); Nucleated Red Blood Cells % 0 %; Platelet Count 278 10^3/uL (130-400); Red Blood Cell Count 3.83 10^6/uL (4.20-5.40); Red Cell Dist. Width 13.1 % (11.5-14.5); White Blood Cell Count 8.9 10^3/uL (4.8-10.8)
[2024-09-04 12:39] LABS: ALT (SGPT) 18 U/L (0-35); AST (SGOT) 28 U/L (14-36); Albumin 4.4 g/dl (3.5-5.0); Alkaline Phosphatase 87 U/L (38-126); Blood Urea Nitrogen 17 mg/dl (7-17); Calcium 9.6 mg/dl (8.4-10.2); Carbon Dioxide 27 mmol/L (22-30); Chloride 104 mmol/L (98-107); Glucose 116 mg/dl (70-99); Potassium 4.1 mmol/L (3.5-5.1); Sodium 139 mmol/L (135-145); Total Bilirubin 0.6 mg/dl (0.2-1.3); Total Protein 6.3 g/dl (6.3-8.2); eGFR 59.12
[2024-09-04 12:45] LABS: Troponin I < 0.012 ng/ml
[2024-09-04 13:51] VITALS: BP 182/67
[2024-09-04 14:00] VITALS: BP 160/70
--- NOTE | 2024-09-04 14:48 | ED.GENMED ---
History of Present Illness
General
Chief Complaint: Cardiac Symptoms
Source: patient and spouse
Time Seen by Provider: 09/04/24 13:46
History of Present Illness
History of Present Illness:
74-year-old female with past medical history of CAD, hypertension, hyperlipidemia, hypothyroidism presenting to the emergency department via EMS after around 10:30 AM she started to experience sensation of heart racing and facial flushing which
lasted for about 30 to 40 minutes, subsided by the time EMS arrived to patient's house. She states since that time is felt a little bit shaky but she attributed this to being anxious. who is with the patient in the ER states that he
checked the patient's pulse at the time and states it was at least 120 bpm. Patient states that she was doing normal morning activities stating that she had already had her morning cup of tea and had started to clean up past and had just gone to
the bathroom to urinate. Patient does follow with a blender conveyor operator named Dr. Moseley with whom she sees twice a year and believes she is scheduled to see him again in October. She cannot recall the last time she had an echocardiogram or stress test.
At time of my evaluation patient remains completely asymptomatic. Patient denies any recent travel or recent illnesses. No change in medications recently.
Past History
Past History
ED Past Medical History: CAD, HTN, Hypercholesterolemia, Hypothyroidism and Other (Rheumatoid arthritis)
ED Past Surgical History: None
Social History
Tobacco: Former smoker
Alcohol: None
Drug: None
Personal:
Living: with family
Employment: Employed
Family History
Family History: Other (Noncontributory)
Review of Systems
Review of Systems
All Other Systems: ROS reviewed and negative except as documented in HPI and ROS
Phy Exam
Physical Exam
Physical Exam:
GENERAL: Alert , in no apparent distress
EYE: conjunctiva clear
NECK: Supple, no significant adenopathy.
ENT: o/p clr, mmm.
CARDIAC: Regular rate and rhythm
LUNGS: Clear breath sounds bilaterally, no acute respiratory distress, no wheezes/rales/rhonchi
NEUROLOGICAL: Alert and oriented
SKIN: Warm and dry, skin intact.
MUSCULOSKELETAL: well perfused.
PSYCH: Normal and appropriate interaction.
Scores
Heart Failure Risk
Heart Failure Risk Score: Not Applicable
Heart Score for Chest Pain Patients
STEMI patient?: Not applicable
Withdrawal Assessment of Alcohol
Withdrawal Assessment Completed?: Not applicable
Course
Orders/Labs/Results
Orders:
Orders
09/04/24 11:53
Electrocardiogram (*1) Urgent
Reason for Study: Chest Pain
EKG- Treatment ONCE
09/04/24 12:04
Complete Blood Count/With Diff Urgent
Comprehensive Metabolic Panel Urgent
TSH Urgent
Comment: ADD ON
Troponin I Urgent
09/04/24 13:47
Add On- LAB Urgent
Tests Added?: TSH
09/04/24 15:26
Electrocardiogram (*1) Urgent
Reason for Study: Palpitations
EKG- Treatment ONCE
09/04/24 15:33
Troponin I Urgent
Abnormal Lab Results
09/04/24
12:04
RBC 3.83 L 10^6/uL
(4.20-5.40)
Hgb 11.9 L g/dL
(12.0-16.0)
Hct 35.9 L %
(37.0-47.0)
MCH 31.1 H pg
(27.0-31.0)
Absolute Neuts (auto) 6.6 H 10^3/uL
(1.4-6.5)
Lymphocytes % 18.2 L %
(20.5-51.1)
Glucose 116 H mg/dl
(70-99)
09/04/24 12:04
09/04/24 12:04
Vital Signs
Initial and Last Documented VS:
Initial Vital Signs
Temp Pulse Resp BP Pulse Ox
97.9 F 79 18 166/71 100
09/04/24 11:54 09/04/24 11:54 09/04/24 11:54 09/04/24 11:54 09/04/24 11:54
Last Documented Vital Signs
Temp Pulse Resp BP Pulse Ox
97.9 F 72 16 158/62 98
09/04/24 11:54 09/04/24 16:15 09/04/24 16:15 09/04/24 16:00 09/04/24 16:15
MDM/Problems Addressed
Differential Diagnosis Includes:
A-fib, SVT, other cardiac dysrhythmia, no symptoms to suggest infectious etiology, electrolyte derangement, valvular dysfunction
MDM/Problems Addressed:
74-year-old female presented to the ER for evaluation of palpitations and sensation of facial flushing that lasted approximately 30 to 40 minutes, noting patient's pulse rate was quite high. Patient back into a normal sinus rhythm by time
EMS arrived and remains in a normal sinus rhythm here and is otherwise asymptomatic. She does have slightly elevated blood pressure however otherwise no abnormal findings. Initial set of labs drawn on arrival which were reassuring. Will add on a
TSH and repeat troponin. Discussed with patient that we would monitor her on telemetry while here but that she would likely need to follow-up with her blender conveyor operator with anticipation that she would be given a Holter monitor to wear for a period of
time. Anticipate discharge home as long as patient remains stable. Patient and the are agreeable with this plan.
Chronic conditions affecting care: CAD
*Pulse Oximetry
Patient hypoxic: no
*EKG
Heart Rate: 68
Rate: normal
Rhythm: sinus
Vilas: normal axis
Ischemia: no ischemia
*Piling Setter Interpretation
Rate: normal
Rhythm: sinus
*Critical Care Note
Total Time (30-74mins, 75-104mins- exclusive of procedures): Not Applicable
Patient Management
Escalation/DeEscalation of care consider admission/obs:
Patient repeat troponin is within normal limits. TSH is also within normal limits. There is no ectopy or cardiac arrhythmia on telemetry while monitoring. Patient did place a call to her cardiology office for follow-up visit while here in the ER.
She is aware of return precautions and follow-up recommendations
ED Attending Note
-
Portions of this chart may have been created with voice recognition software.� Occasional wrong word or��sound alike� substitutions may have occurred due to the inherent limitations of voice recognition software.
Discharge Plan
Departure
Patient Disposition: Home (Routine Discharge)
Date of Disposition: 09/04/24
Time of Disposition: 16:15
Patient with high blood pressure during this ER visit?: Yes
Discharge Problem:
Palpitations
Instructions: Palpitations - ED discharge instructions
Prescriptions:
No Action
levothyroxine 75 MCG tablet
75 mcg PO MOTUWETHFRSA
methotrexate sodium 2.5 mg Tablet
10 mg PO BLANCO
folic acid 1 mg Tablet
1 mg PO DAILY
ergocalciferol (vitamin D2) 1,250 mcg (50,000 unit) Capsule
1,250 mcg PO QMONTH
azelastine 137 mcg (0.1 %) Aerosol,[place]
1 spray INTRANASAL BID
fluticasone propionate 50 mcg/actuation [place],Suspension
1 spray INTRANASAL DAILY
ztimubfoxrlgf-gqolnwkgxhvgq-ZQ 5-325-200 mg Tablet
1 tab PO DAILYPRN PRN (Reason: allergies)
cholecalciferol (vitamin D3) [Vitamin D3] 25 mcg (1,000 unit) Tablet
25 mcg PO DAILY
rosuvastatin 10 mg Tablet
10 mg PO DAILY
Saline Nasal 0.65 % Aerosol,[place]
2 spray intranasal QIDPRN PRN (Reason: nasal congestion) Qty: 0 0RF
guaifenesin 600 mg Tablet Extended Release 12hr
1,200 mg PO Q12 Qty: 0 0RF
acetaminophen 325 mg Tablet
650 mg PO Q6HPRN PRN (Reason: mild pain/ fever>100.5F) Qty: 0 0RF
amlodipine [Norvasc] 5 mg tablet
5 mg PO DAILY Qty: 30 0RF
Referrals:
Luisa Mcmullen, DO [Family Provider] -
Interventions
Interventions:
*Risk Screen - Suicide Last Done: 09/04/24 11:54
*General Assessment Last Done: 09/04/24 11:54
*Neglect/Abuse Screening Last Done: 09/04/24 11:54
*ED- Fall Risk Assessment Last Done: 09/04/24 15:52
*ED COVID-19 Vaccine History Last Done: 09/04/24 15:52
*Nursing Disposition Last Done: 09/04/24 16:30
ED- Pulmonary Assessment Last Done: 09/04/24 15:45
ED- Cardiac Assessment Last Done: 09/04/24 15:45
Discharge Date and Time
Discharge Date/Time: 09/04/24 16:31
Print Language: [id number]
[2024-09-04 15:00] VITALS: BP 160/62
[2024-09-04 15:51] LABS: TSH 0.49 uIU/ml (0.47-4.68)
[2024-09-04 15:52] VITALS: BMI 24.2
[2024-09-04 16:00] VITALS: BP 158/62
[2024-09-04 16:07] LABS: Troponin I < 0.012 ng/ml
== END 2024-09-04 16:31 | disposition home or self-care (01) ==
LOC: EMR 11:43
PROVIDERS: Physician Assistant Medical; Student in an Organized Health Care Education/Training Program; EMERGENCY PHYSICIAN Emergency Medicine; FAMILY PHYSICIAN Family Medicine
DX: R00.2 Palpitations (principal); I25.10 Atherosclerotic heart disease of native coronary artery without angina pectoris; I10 Essential (primary) hypertension; E78.00 Pure hypercholesterolemia, unspecified; E03.9 Hypothyroidism, unspecified; M06.9 Rheumatoid arthritis, unspecified; Z87.891 Personal history of nicotine dependence; Z88.1 Allergy status to other antibiotic agents; Z88.2 Allergy status to sulfonamides; Z88.8 Allergy status to other drugs, medicaments and biological substances
CPT/HCPCS: 99284; 80053; 84443; 84484; 85025; 93005

== ENCOUNTER → 2024-10-24 15:31 | Outpatient (REF) | payer MEDICARE, OTHER, SELFPAY | LOC: HWRAD 15:31 | PROVIDERS: ATTENDING PHYSICIAN Nurse Practitioner Adult Health; FAMILY PHYSICIAN Family Medicine | DX: M05.9 Rheumatoid arthritis with rheumatoid factor, unspecified (principal); I10 Essential (primary) hypertension; S39.012A Strain of muscle, fascia and tendon of lower back, initial encounter; M81.0 Age-related osteoporosis without current pathological fracture; M54.50 Low back pain, unspecified | CPT/HCPCS: 72110 ==

== ENCOUNTER 2024-10-26 13:40 | Emergency (ER) | payer MEDICARE, OTHER, SELFPAY ==
[2024-10-26 13:45] VITALS: BP 163/79
--- NOTE | 2024-10-26 16:30 | ED.GENMED ---
History of Present Illness
General
Chief Complaint: Bowel Problem
Time Seen by Provider: 10/26/24 15:47
History of Present Illness
History of Present Illness:
74-year-old female history of CAD, hypertension, hyperlipidemia presenting with constipation for the past 8 days. Patient states that she strained her left lower back on 10/09 while trimming branches. Patient states that she saw her PCP 2 days
later who prescribed Flexeril and tramadol. Patient states that she has not had a bowel movement since. Patient states that she saw her PCP yesterday who recommended to take MiraLAX daily. Patient states that she is taking MiraLAX for the past 2
days with no relief. Patient states that she took magnesium citrate twice this morning and a Fleet enema, states that she had small sri but no large bowel movement. Patient denies nausea, vomiting or abdominal pain. Patient states she still
passing gas. Patient states she stopped taking tramadol a week ago. Patient denies history of abdominal surgeries. Pt states she has not eaten much for the past 3-4 days due to concern she would exacerbate the constipation.
Past History
Past History
ED Past Medical History: CAD, HTN, Hypercholesterolemia, Hypothyroidism and Other (Rheumatoid arthritis)
ED Past Surgical History: None
Social History
Tobacco: Former smoker
Alcohol: None
Drug: None
Personal:
Living: with family
Employment: Employed
Family History
Family History: Other (Noncontributory)
Phy Exam
Physical Exam
Physical Exam:
General: Alert, no acute distress
Head: NCAT
Eyes: clear conjunctiva
Neck: supple
Cardiac: regular rate and rhythm, no murmur
Lungs: clear to auscultation bilaterally. No wheezes, rales, or rhonchi. Speaking full unlabored sentences. No respiratory distress.
Abdomen: soft, nondistended nontender. No rebound or guarding.
MSK: no lower extremity edema bilaterally. No deformity. Increased tonicity to left paraspinal lumbar with tenderness to palpation. No midline thoracic/lumbar tenderness to palpation
Skin: warm, dry
Neuro: Alert and oriented x3. 5-5 strength bilateral hip/knee/ankle flexion extension. Sensation intact no saddle paresthesias.
Course
Orders/Labs/Results
Orders:
Orders
10/26/24 16:30
Abdomen Xray - 1 View [CR Abdomen - 1 View] Urgent
Comment:
Reason For Exam: constipation
Vital Signs
Initial and Last Documented VS:
Initial Vital Signs
Temp Pulse Resp BP Pulse Ox
97.8 F 94 16 163/79 99
10/26/24 13:45 10/26/24 13:45 10/26/24 13:45 10/26/24 13:45 10/26/24 13:45
Last Documented Vital Signs
Temp Pulse Resp BP Pulse Ox
97.8 F 94 16 163/79 99
10/26/24 13:45 10/26/24 13:45 10/26/24 13:45 10/26/24 13:45 10/26/24 13:45
MDM/Problems Addressed
Differential Diagnosis Includes:
Constipation. Low suspicion for bowel obstruction given patient is still passing gas, no abdominal pain, no nausea or vomiting, no history of abdominal surgeries, abdomen soft nondistended nontender. Will obtain x-ray to assess constipation.
MDM/Problems Addressed:
Xray reviewed, shows Nonobstructive bowel gas pattern. No significant colonic stool burden. No appreciable intraperitoneal free air. A small calcification projecting over the right upper quadrant likely corresponds to a calcified gallstone in
correlation with the prior CT. Moderate lumbar levoscoliosis. Chronic compression fractures of the L1 and L3 vertebral bodies.
Discussed results with patient at bedside. Abdomen soft nondistended nontender. Recommended to take MiraLAX twice daily, drink lots of water, drink prune juice. Advised to take medication prescribed by PCP for chronic compression fractures.
Discussed possibility of constipation with taking tramadol. Patient expressed verbal understanding. Stable discharge with PCP follow-up
*Critical Care Note
Total Time (30-74mins, 75-104mins- exclusive of procedures): Not Applicable
ED Attending Note
-
Portions of this chart may have been created with voice recognition software.� Occasional wrong word or��sound alike� substitutions may have occurred due to the inherent limitations of voice recognition software.
Discharge Plan
Departure
Patient Disposition: Home (Routine Discharge)
Date of Disposition: 10/26/24
Time of Disposition: 17:42
Patient with high blood pressure during this ER visit?: Yes
Discharge Problem:
Constipation
Instructions: Constipation, Adult (DC), BLOOD PRESSURE
Prescriptions:
No Action
levothyroxine 75 MCG tablet
75 mcg PO MOTUWETHFRSA
methotrexate sodium 2.5 mg Tablet
10 mg PO BLANCO
folic acid 1 mg Tablet
1 mg PO DAILY
ergocalciferol (vitamin D2) 1,250 mcg (50,000 unit) Capsule
1,250 mcg PO QMONTH
azelastine 137 mcg (0.1 %) Aerosol,[place]
1 spray INTRANASAL BID
fluticasone propionate 50 mcg/actuation [place],Suspension
1 spray INTRANASAL DAILY
camaaeriphvqw-lvklinkqrvfxb-VX 5-325-200 mg Tablet
1 tab PO DAILYPRN PRN (Reason: allergies)
cholecalciferol (vitamin D3) [Vitamin D3] 25 mcg (1,000 unit) Tablet
25 mcg PO DAILY
rosuvastatin 10 mg Tablet
10 mg PO DAILY
Saline Nasal 0.65 % Aerosol,[place]
2 spray intranasal QIDPRN PRN (Reason: nasal congestion) Qty: 0 0RF
guaifenesin 600 mg Tablet Extended Release 12hr
1,200 mg PO Q12 Qty: 0 0RF
acetaminophen 325 mg Tablet
650 mg PO Q6HPRN PRN (Reason: mild pain/ fever>100.5F) Qty: 0 0RF
amlodipine [Norvasc] 5 mg tablet
5 mg PO DAILY Qty: 30 0RF
Referrals:
UNKNOWN - PT DOES,NOT KNOW [Unknown Provider]
Activity Restrictions/Additional Instructions:
Take MiraLAX twice daily
Drink prune juice and lots of water
Be careful taking tramadol as it can cause constipation
Follow-up with primary care doctor in 2 to 3 days
Return to emergency department for abdominal pain, persistent vomiting or new/worsening symptoms
Interventions
Interventions:
*Risk Screen - Suicide Last Done: 10/26/24 13:45
*Neglect/Abuse Screening Last Done: 10/26/24 13:45
*Nursing Disposition Last Done: 10/26/24 18:00
IY-Prngrh-Epygftrauo Assessment Last Done: 10/26/24 16:25
Discharge Date and Time
Discharge Date/Time: 10/26/24 18:01
Print Language: BURKINAN
== END 2024-10-26 18:01 | disposition home or self-care (01) ==
LOC: EMR 13:40
PROVIDERS: EMERGENCY PHYSICIAN Emergency Medicine; FAMILY PHYSICIAN Family Medicine
DX: K59.00 Constipation, unspecified (principal); I10 Essential (primary) hypertension; E78.00 Pure hypercholesterolemia, unspecified; E03.9 Hypothyroidism, unspecified; I25.10 Atherosclerotic heart disease of native coronary artery without angina pectoris; M06.9 Rheumatoid arthritis, unspecified; Z87.891 Personal history of nicotine dependence
CPT/HCPCS: 99283; 74018

== ENCOUNTER 2024-11-22 11:27 | Emergency (ER) | payer MEDICARE, OTHER, SELFPAY ==
[2024-11-22] VITALS (7 sets, daily range): BP systolic 122–152; BP diastolic 59–77; BMI 23.0
[2024-11-22 12:06] LABS: Hematocrit 39.7 % (37.0-47.0); Hemoglobin 13.7 g/dL (12.0-16.0); Mean Corp Hgb Conc. 34.5 g/dL (33.0-37.0); Mean Corpuscular Volume 90.6 fL (81.0-99.0); Nucleated Red Blood Cells % 0 %; Platelet Count 496 10^3/uL (130-400); Red Cell Dist. Width 12.7 % (11.5-14.5)
[2024-11-22 12:19] LABS: ALT (SGPT) 12 U/L (0-35); AST (SGOT) 18 U/L (14-36); Albumin 4.5 g/dl (3.5-5.0); Alkaline Phosphatase 157 U/L (38-126); Calcium 10.2 mg/dl (8.4-10.2); Carbon Dioxide 23 mmol/L (22-30); Chloride 103 mmol/L (98-107); Estimated Creatinine Clearance 39 ml/min; Glucose 104 mg/dl (70-99); Potassium 4.3 mmol/L (3.5-5.1); Sodium 134 mmol/L (135-145); Total Protein 7.0 g/dl (6.3-8.2); eGFR 59.12
[2024-11-22 12:29] LABS: Blood Urea Nitrogen 12 mg/dl (7-17)
[2024-11-22] MEDS: ATIVAN 0.5 MG PO (13:17)
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
[2024-11-22] MEDS: TYLENOL 650 MG PO (13:37)
[2024-11-22 13:50] LABS: Urine Character Clear (Clear)
[2024-11-22 13:53] LABS: COVID-19 Antigen Negative (Negative)
[2024-11-22 14:43] LABS: Urine Squamous Cell 16-20 /LPF (Few)
[2024-11-22 14:50] LABS: Urine Red Blood Cell 0-2 /HPF (0-2); Urine White Cell 0-2 /HPF (0-5)
[2024-11-22] MEDS: ZITHROMAX 500 MG PO (15:12)
[2024-11-22] MEDS: OMNICEF 300 MG PO (15:12)
== END 2024-11-22 15:51 | disposition home or self-care (01) ==
LOC: EMR 11:27
PROVIDERS: Physician Assistant; EMERGENCY PHYSICIAN Emergency Medicine; FAMILY PHYSICIAN Family Medicine
DX: J18.9 Pneumonia, unspecified organism (principal); Z11.52 Encounter for screening for COVID-19; Z87.891 Personal history of nicotine dependence; I10 Essential (primary) hypertension; E03.9 Hypothyroidism, unspecified; G25.0 Essential tremor
CPT/HCPCS: 99285; 71046; 80053; 81003; 81015; 82550; 83605; 84443; 85025; 87040; 87811; 93005

== ENCOUNTER 2024-12-17 13:27 | Emergency (ER) | payer MEDICARE, OTHER, SELFPAY ==
[2024-12-17 13:28] VITALS: BP 154/76
[2024-12-17 14:02] LABS: Hematocrit 38.4 % (37.0-47.0); Hemoglobin 12.8 g/dL (12.0-16.0); Mean Corp Hgb Conc. 33.3 g/dL (33.0-37.0); Mean Corpuscular Volume 91.4 fL (81.0-99.0); Nucleated Red Blood Cells % 0 %; Platelet Count 323 10^3/uL (130-400); Red Cell Dist. Width 12.6 % (11.5-14.5)
[2024-12-17 14:16] LABS: ALT (SGPT) 11 U/L (0-35); AST (SGOT) 18 U/L (14-36); Albumin 4.4 g/dl (3.5-5.0); Alkaline Phosphatase 122 U/L (38-126); Blood Urea Nitrogen 10 mg/dl (7-17); Calcium 9.6 mg/dl (8.4-10.2); Carbon Dioxide 25 mmol/L (22-30); Chloride 101 mmol/L (98-107); Glucose 97 mg/dl (70-99); Potassium 4.7 mmol/L (3.5-5.1); Sodium 132 mmol/L (135-145); Total Protein 6.6 g/dl (6.3-8.2); eGFR > 60.00
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
[2024-12-17 19:14] VITALS: BP 161/70
[2024-12-17 19:20] VITALS: BMI 23.7
[2024-12-17] MEDS: TYLENOL 650 MG PO (20:28)
[2024-12-17 21:55] VITALS: BP 146/65
[2024-12-17 22:00] VITALS: BP 133/65
== END 2024-12-17 22:21 | disposition home or self-care (01) ==
LOC: EMR 13:27
PROVIDERS: Emergency Medicine; EMERGENCY PHYSICIAN Emergency Medicine; FAMILY PHYSICIAN Family Medicine
DX: S22.43XA Multiple fractures of ribs, bilateral, initial encounter for closed fracture (principal); X58.XXXA Exposure to other specified factors, initial encounter; I25.10 Atherosclerotic heart disease of native coronary artery without angina pectoris; I10 Essential (primary) hypertension; E78.00 Pure hypercholesterolemia, unspecified; E03.9 Hypothyroidism, unspecified; M06.9 Rheumatoid arthritis, unspecified; Z87.01 Personal history of pneumonia (recurrent); Z87.891 Personal history of nicotine dependence
CPT/HCPCS: 99284; 71275; 80053; 85025; Q9967

== ENCOUNTER 2024-12-24 10:20 | Emergency (ER) | payer MEDICARE, OTHER, SELFPAY ==
[2024-12-24 10:24] VITALS: BP 170/84
--- NOTE | 2024-12-24 10:50 | ED.GENMED ---
History of Present Illness
General
Chief Complaint: Bowel Problem
Time Seen by Provider: 12/24/24 10:40
History of Present Illness
History of Present Illness:
74-year-old female presents to the emergency department for evaluation of constipation. She is currently on scheduled opiates due to recent fall resulting in vertebral compression fracture and rib fractures. She has been taking MiraLAX once daily
without improvement. She also notes that she is taking Zofran for nausea which is worsening over the past several days. Denies any rectal pain or pressure. Tried enemas and suppositories without relief. Still passing flatus
Past History
Past History
ED Past Medical History: CAD, HTN, Hypercholesterolemia, Hypothyroidism and Other (Rheumatoid arthritis)
ED Past Surgical History: None
Social History
Tobacco: Former smoker
Alcohol: None
Drug: None
Personal:
Living: with family
Employment: Employed
Family History
Family History: Other (Noncontributory)
Review of Systems
Review of Systems
Allergies reviewed?: Yes
All Other Systems: ROS reviewed and negative except as documented in HPI and ROS
Phy Exam
Physical Exam
Physical Exam:
GEN: Well appearing, NAD, WDWN
HEENT: Oral mucosa moist, no scleral icterus
Cardiac: Regular rate
Lung: No respiratory distress, no tachypnea
Abdomen: Soft, nondistended, grossly nontender
MSK: No gross deformity or injuries
Skin: Good color, no pallor or jaundice, no rashes
Neuro: AO x3, moves all extremities freely
Psych: Calm, cooperative
Course
Orders/Labs/Results
Orders:
Orders
12/24/24 10:49
CR Obstruct Series W/pa Chest Urgent
Comment:
Reason For Exam: constipation/abd bloating
12/24/24 12:10
Magnesium Citrate [Citroma] 300 ml PO ONCE ONE
Vital Signs
Initial and Last Documented VS:
Initial Vital Signs
Temp Pulse Resp BP Pulse Ox
98 F 94 16 170/84 98
12/24/24 10:24 12/24/24 10:24 12/24/24 10:24 12/24/24 10:24 12/24/24 10:24
Last Documented Vital Signs
Temp Pulse Resp BP Pulse Ox
98 F 87 20 129/84 99
12/24/24 10:24 12/24/24 12:00 12/24/24 12:00 12/24/24 12:00 12/24/24 12:00
MDM/Problems Addressed
MDM/Problems Addressed:
74-year-old female presents with constipation. She has no clinical signs or symptoms of bowel obstruction. She does not have rectal pain suggesting firm rectal fecal impaction. Will trial a course of laxatives
*Pulse Oximetry
SaO2: 98
Oxygen Mode of Delivery: Room air
Patient hypoxic: no
*Critical Care Note
Total Time (30-74mins, 75-104mins- exclusive of procedures): Not Applicable
ED Attending Note
-
Portions of this chart may have been created with voice recognition software.� Occasional wrong word or��sound alike� substitutions may have occurred due to the inherent limitations of voice recognition software.
Discharge Plan
Departure
Patient Disposition: Home (Routine Discharge)
Date of Disposition: 12/24/24
Time of Disposition: 12:08
Patient with high blood pressure during this ER visit?: No
Discharge Problem:
Constipation
Instructions: Constipation, Adult (DC)
Prescriptions:
New
metoclopramide HCl 10 mg tablet
10 mg PO AC Qty: 10 0RF
No Action
levothyroxine 75 MCG tablet
75 mcg PO MOTUWETHFRSA
methotrexate sodium 2.5 mg Tablet
10 mg PO BLANCO
folic acid 1 mg Tablet
1 mg PO DAILY
ergocalciferol (vitamin D2) 1,250 mcg (50,000 unit) Capsule
1,250 mcg PO QMONTH
azelastine 137 mcg (0.1 %) Aerosol,Glidden
1 spray INTRANASAL BID
fluticasone propionate 50 mcg/actuation Glidden,Suspension
1 spray INTRANASAL DAILY
wzmjeqidaicyg-sdzgfbdbfwbxb-MM 5-325-200 mg Tablet
1 tab PO DAILYPRN PRN (Reason: allergies)
cholecalciferol (vitamin D3) [Vitamin D3] 25 mcg (1,000 unit) Tablet
25 mcg PO DAILY
rosuvastatin 10 mg Tablet
10 mg PO DAILY
Saline Nasal 0.65 % Aerosol,Glidden
2 spray intranasal QIDPRN PRN (Reason: nasal congestion) Qty: 0 0RF
guaifenesin 600 mg Tablet Extended Release 12hr
1,200 mg PO Q12 Qty: 0 0RF
acetaminophen 325 mg Tablet
650 mg PO Q6HPRN PRN (Reason: mild pain/ fever>100.5F) Qty: 0 0RF
amlodipine [Norvasc] 5 mg tablet
5 mg PO DAILY Qty: 30 0RF
cefpodoxime 200 mg tablet
200 mg PO Q12H Qty: 14 0RF
azithromycin [Zithromax] 250 mg tablet
250 mg PO DAILY Qty: 4 0RF
Referrals:
Luisa Mcmullen DO [Family Provider, Family Practice]
Activity Restrictions/Additional Instructions:
Take half of the magnesium citrate and wait 4 to 6 hours, if no bowel movements you may take the other half
Continue with once daily MiraLAX while you are on the opiates
If you have no relief with the magnesium citrate, please consider a MiraLAX bowel prep. To perform this you will mix a full large bottle of MiraLAX into 64 ounces of liquid and consume over the course of the day. Do not try this until least 24
hours after your magnesium citrate has passed
Interventions
Interventions:
*Risk Screen - Suicide Last Done: 12/24/24 10:27
*General Assessment Last Done: 12/24/24 11:00
*Neglect/Abuse Screening Last Done: 12/24/24 10:27
*Nursing Disposition Last Done: 12/24/24 12:40
IZ-Ffzbce-Mvcyexzlzc Assessment Last Done: 12/24/24 11:00
Discharge Date and Time
Discharge Date/Time: 12/24/24 12:40
Print Language: WOLOF
[2024-12-24 12:00] VITALS: BP 129/84
[2024-12-24] MEDS: CITROMA 300 ML PO (12:13)
== END 2024-12-24 12:40 | disposition home or self-care (01) ==
LOC: EMR 10:20
PROVIDERS: EMERGENCY PHYSICIAN Student in an Organized Health Care Education/Training Program; FAMILY PHYSICIAN Family Medicine
DX: K59.00 Constipation, unspecified (principal); I25.10 Atherosclerotic heart disease of native coronary artery without angina pectoris; I10 Essential (primary) hypertension; E78.00 Pure hypercholesterolemia, unspecified; E03.9 Hypothyroidism, unspecified; M06.9 Rheumatoid arthritis, unspecified; Z87.891 Personal history of nicotine dependence
CPT/HCPCS: 99283; 74022

== ENCOUNTER → 2025-01-15 15:37 | Outpatient (REF) | payer MEDICARE, OTHER, SELFPAY | LOC: HWRAD 15:37 | PROVIDERS: ATTENDING PHYSICIAN Family Medicine | DX: J18.9 Pneumonia, unspecified organism (principal) | CPT/HCPCS: 71046 ==